=== PATIENT | male | born 1975 | race Caucasian/White ===

== ENCOUNTER 2018-05-05 16:53 | Inpatient (IN) | payer OTHER ==
[2018-05-05 17:05] VITALS: BMI 31.3
--- NOTE | 2018-05-05 18:39 | PDOC ---
Attending Attestation - Physicial Exam PE: 05/05/18 18:45 ADULT EXAM GENERAL: Awake, alert, and fully oriented, in no acute distress HEAD: No signs of trauma EYES: PERRLA, EOMI, sclera anicteric, conjunctiva clear ENT: Auricles normal inspection, hearing grossly normal, nares patent, oropharynx clear without exudates. Moist mucosa NECK: Normal ROM, supple, no lymphadenopathy, JVD, or masses LUNGS: Breath sounds equal, clear to auscultation bilaterally. No wheezes, and no crackles HEART: Regular rate and rhythm, normal S1 and S2, no murmurs, rubs or gallops ABDOMEN: (+) RLQ tenderness. Soft, normoactive bowel sounds. No guarding, no rebound. No masses EXTREMITIES: Normal range of motion, no edema. No clubbing or cyanosis. No cords, erythema, or tenderness NEUROLOGICAL: Cranial nerves II through XII grossly intact. Normal speech, normal gait SKIN: Warm, Dry, normal turgor, no rashes or lesions noted. <Martin Smith - Last Filed: 05/05/18 22:24> - Resident Resident Name: Glory Brizuela - ED Attending Attestation I have performed the following: I have examined & evaluated the patient, The case was reviewed & discussed with the resident, I agree w/resident's findings & plan, Exceptions are as noted - HPI HPI: 05/05/18 18:43 83-year-old male with no past significant history developed abdominal pain today with nausea. Pain has been persistent. Nausea but no vomiting or diarrhea, fever, chills - Medical Decision Making 05/05/18 22:28 CAT scan of abdomen and pelvis with contrast shows enlarged appendicitis with appenicolith with fat stranding. Impression early appendicitis Dr Robertson consulted and agreed to admission <Airam Olsen - Last Filed: 05/05/18 22:30>
[2018-05-05] MEDS ORDERED: morphine CARPU-JECT 2 MG/1 ML DISP.SYRIN IVPUSH ONE ×2 (18:43→22:17)
[2018-05-05] MEDS ORDERED: SODIUM CHLORIDE 1,000 ML IV STA (18:44)
[2018-05-05] MEDS ORDERED: ONDANSETRON 4 MG/2 ML VIAL IVPUSH ONE (18:45)
--- NOTE | 2018-05-05 18:53 | PDOC ---
History of Present Illness - General Chief Complaint: Pain Stated Complaint: FATIGUE/nausea Time Seen by Provider: 05/05/18 18:14 History Source: Patient Exam Limitations: No Limitations - History of Present Illness Initial Comments: 43yo M with no significant PMH complaining of abdominal pain. The pain started this morning, has been constant, and gotten worse over the course of the day. He rates it 7/10 currently, 9/10 at its worst, and describes it as twisting. Certain positions and movement make the pain worse and nothing makes the pain better. Patient endorses nausea which has keep him from eating. Last bowel movement was this morning, a brown formed stool. No history of abdominal surgeries or kidney stones. Denies fever, chills, chest pain, shortness of breath, dysuria, or hematuria. 05/05/18 19:06 Past History - Past Medical History Allergies/Adverse Reactions: Allergies Allergy/AdvReac Type Severity Reaction Status Date / Time No Known Allergies Allergy Verified 05/05/18 17:05 Home Medications: Ambulatory Orders NK [No Known Home Medication] 05/05/18 COPD: No - Suicide/Smoking/Psychosocial Hx Smoking History: Never smoked Have you smoked in the past 12 months: No Information on smoking cessation initiated: No Hx Alcohol Use: No Drug/Substance Use Hx: No Substance Use Type: None Review of Systems - Review of Systems Comments:: Constitutional: +chills, no fever HEENT: no throat pain, no dysphagia Cardiovascular: no chest pain, no palpitations Respiratory: no cough, no shortness of breath Gastrointestinal: +abdominal pain, +nausea, no diarrhea, no constipation Genitourinary: no dysuria, no frequency Musculoskeletal: no myalgia, no arthralgia Skin: no rash, no itching Neurologic: no headache, no dizziness *Physical Exam - Vital Signs Last Vital Signs Temp Pulse Resp BP Pulse Ox 99.1 F 52 L 16 135/71 100 05/05/18 17:03 05/05/18 17:03 05/05/18 17:03 05/05/18 17:03 05/05/18 17:03 - Physical Exam Comments: General: Awake, alert, and fully oriented, in no acute distress Head: no signs of trauma Eyes: PERRL, EOMI, sclera anicteric ENT: moist mucus membranes, Neck: Normal ROM, supple, no lymphadenopathy Lungs: Lungs clear, Normal breath sounds Cardio: Regular rhythm, S1 and S2 present, no murmurs, rubs, or gallops Abdomen: +very tender to palpation focal to RLQ, +Obturator sign, +less tender LLQ and epigastrium; Soft, normal bowel sounds. No guarding, no rebound, no masses Extremities: Normal range of motion, No clubbing or cyanosis SKIN: Warm, Dry, normal turgor, no rashes or lesions noted Neurologic: Cranial nerves II through XII grossly intact. Normal speech ED Treatment Course - LABORATORY CBC & Chemistry Diagram: 05/06/18 06:21 05/06/18 13:48 - RADIOLOGY Radiology Studies Ordered: Category Date Time Status ABDOMEN CT WITH CONTRAST* [CT] Stat CT Scan 05/05/18 18:45 Ordered Medical Decision Making - Medical Decision Making 43yo M with RLQ abdominal pain, +obturator sign. DDX includes appendicitis given anorexia, nausea with RLQ tenderness on abdominal exam. Will obtain CBC with differential to assess for elevated white count and Abdominal CT w/contrast. It is less likely that the patient has diverticulitis given younger age, no fever, no LLQ pain, no change in bowel habits. It is less likely that the patient has an acute coronary syndrome given patient s young age, lack of family history of heart problems, does not have chest pain currently, is hemodynamically stable. EKG ordered. It is less likely that the patient has symptomatic nephrolithiasis given no history of kidney stones, dehydration, or hematuria. It is less likely AAA given no syncope, no chest pain. 05/05/18 18:55 Patient signed out to Dr. Paula 05/05/18 19:19 *DC/Admit/Observation/Transfer Diagnosis at time of Disposition: Appendicitis - Discharge Dispostion Condition at time of disposition: Improved - Referrals - Patient Instructions - Post Discharge Activity
[2018-05-05] MEDS ORDERED: ONDANSETRON 4 MG/2 ML VIAL ONE (18:57)
[2018-05-05] MEDS ORDERED: MORPHINE SULFATE 2 MG/ML VIAL ONE ×2 (18:57→22:28)
[2018-05-05 19:18] LABS: BASO % 0.3 % (0-2.0); EOS % 0.2 % (0-4.5); HEMATOCRIT 38.3 % (35.4-49); HEMOGLOBIN 13.1 GM/dL (11.7-16.9); LYMPH % 8.4 % (8-40); MCH 29.7 pg (25.7-33.7); MCHC 34.3 g/dl (32.0-35.9); MEAN CELL VOLUME 86.5 fl (80-96); MEAN PLT VOLUME 7.1 fl (7.5-11.1); MONO % 4.8 % (3.8-10.2); NEUT % 86.3 % (42.8-82.8); PLATELET COUNT 293 K/MM3 (134-434); RBC 4.42 M/mm3 (4.00-5.60); RDW 13.3 % (11.9-15.9); WHITE BLOOD COUNT 14.7 K/mm3 (4.0-10.0)
[2018-05-05] MEDS ORDERED: PIPERACILLIN/TAZOB 4.5 GM 4.5 GM in DEXTROSE 5%-WATER 100 ML IVPB ONE (19:41)
--- NOTE | 2018-05-05 19:41 | PDOC ---
*Physical Exam - Vital Signs Last Vital Signs Temp Pulse Resp BP Pulse Ox 99.1 F 52 L 16 135/71 100 05/05/18 17:03 05/05/18 17:03 05/05/18 17:03 05/05/18 17:03 05/05/18 17:03 - Physical Exam Comments: 05/05/18 19:37 General: Comfortable, no acute distress HEENT: PERRL, EOMI, MMM, voice normal, normal neck ROM, no LAD Cards: RRR, no murmur appreciated Pulm: Comfortable on room air, clear to auscultation bilaterally Abd: TTP in RLQ, mild epigastric tenderness Ext: Atraumatic. No LE edema. ROM intact. Strength 5/5 and equal bilaterally Vasc: Extremities WWP. Palpable radial and pedal pulses bilaterally Neuro: A&Ox3, CN grossly intact, normal speech, motor/sensory grossly intact and symmetric Psych: Mood appropriate to situation ED Treatment Course - LABORATORY CBC & Chemistry Diagram: 05/05/18 19:05 05/05/18 19:05 - ADDITIONAL ORDERS Additional order review: 05/05/18 19:05 RBC 4.42 MCV 86.5 MCHC 34.3 RDW 13.3 MPV 7.1 L Neutrophils % 86.3 H Lymphocytes % 8.4 Monocytes % 4.8 Eosinophils % 0.2 Basophils % 0.3 - Medications Given in the ED: ED Medications Discontinued Medications Generic Name Dose Route Start Last Admin Trade Name Freq PRN Reason Stop Dose Admin Morphine Sulfate 2 mg 05/05/18 18:43 05/05/18 19:25 Morphine Injection - IVPUSH 05/05/18 18:44 2 mg ONCE ONE Administration Ondansetron HCl 4 mg 05/05/18 18:45 05/05/18 19:25 Zofran Injection IVPUSH 05/05/18 18:46 4 mg ONCE ONE Administration Medical Decision Making - Medical Decision Making 05/05/18 19:38 Sign out received from Dr Brizuela. Petaramado Dormanbryaneliza is an otherwise healthy 43yo man who presented to the ED with worsening RLQ pain since this morning, +obturator sign, labs returned at this point with WBC 14. Lytes, UA, CT abdomen still pending. - Recieved IV morphine about 15 minutes prior to exam, reports pain improved - Will start zosyn for presumed appendicitis. Plan for surgery consult if confirmed on CT. 05/05/18 22:59 - CT completed indicating appendicolith, dilation of appendix, fat stranding - Discussed with Dr Robertson. Will be admitted to hospitalist, plan for surgery in morning - Hospitalist paged - Made NPO after midnight - Will discuss plan with Mr Escobar Discussed with Dr Olsen *DC/Admit/Observation/Transfer Diagnosis at time of Disposition: Appendicitis Qualifiers: Appendicitis type: acute appendicitis Acute appendicitis type: unspecified acute appendicitis type Qualified Code(s): K35.80 - Unspecified acute appendicitis - Discharge Dispostion Decision to Admit order: Yes - Referrals - Patient Instructions - Post Discharge Activity
[2018-05-05 19:57] LABS: ALK PHOS 76 U/L (45-117); ANION GAP 8 (8-16); BILIRUBIN,TOTAL 0.5 mg/dL (0.2-1.0); BLOOD UREA NITROGEN 14 mg/dL (7-18); CHLORIDE 105 mmol/L (98-107); CO2 27 mmol/L (21-32); CREATININE 1.2 mg/dL (0.7-1.3); GLUCOSE,RANDOM 107 mg/dL (74-106); LIPASE 153 U/L (73-393); POTASSIUM 4.1 mmol/L (3.5-5.1); SGOT/AST 25 U/L (15-37); SGPT/ALT 58 U/L (12-78); SODIUM 140 mmol/L (136-145); TOT PROT 7.7 g/dl (6.4-8.2)
[2018-05-05] MEDS ORDERED: PIPERACILLIN/TAZOB 4.5 GM 4.5 GM/100 ML BAG IVPB ONE (20:40)
[2018-05-05 20:55] LABS: URINE APPEARANCE CLEAR; URINE BILIRUBIN NEGATIVE (<2.0 mg/dL); URINE COLOR LTYELLOW; URINE GLUCOSE (UA) NEGATIVE (NEGATIVE); URINE KETONE NEGATIVE (NEGATIVE); URINE LEUK ESTERASE NEGATIVE (NEGATIVE); URINE NITRITE NEGATIVE (NEGATIVE); URINE PROTEIN NEGATIVE (NEGATIVE); URINE UROBILINOGEN NEGATIVE mg/dL (0.2-1.0)
[2018-05-05] MEDS ORDERED: D5-1/2NS+20 MEQ KCL - 20 MEQ/1,000 ML INFUS.BAG IV SCH (23:15)
[2018-05-05 23:42] LABS: INR 1.12 (0.82-1.09); PROTHROMBIN TIME (PATIENT) 12.7 SEC (9.7-13.0)
--- NOTE | 2018-05-06 00:35 | PN ---
Teaching Attending Note Name of Resident: Antonio Hadley ATTENDING PHYSICIAN STATEMENT I saw and evaluated the patient. I reviewed the resident's note and discussed the case with the resident. I agree with the resident's findings and plan as documented. SUBJECTIVE: Patient is a 43 year old man with no significant PMH complaining of RLQ abdominal pain. The pain started this morning, has been constant, and gotten worse over the course of the day. He rates it 7/10 currently, 9/10 at its worst , and describes it as twisting. Certain positions and movement make the pain worse and nothing makes the pain better. Has nausea which has kept him from eating. Last bowel movement was this morning, a brown formed stool. No history of abdominal surgeries or kidney stones. Denies fever, chills, chest pain, shortness of breath, dysuria, or hematuria. OBJECTIVE: Alert and in no acute distress Vital Signs Period Temp Pulse Resp BP Sys/Anaya Pulse Ox Last 24 Hr 97.9 F-99.1 F 52-71 16-16 117-135/64-71 98-100 HEENT: No Jaundice, eye redness or discharge, PERRLA, EOMI. Normocephalic, atraumatic. External ears are normal and hearing is grossly intact. No nasal discharge. Neck: Supple, nontender. No palpable adenopathy or thyromegaly. No JVD Chest: Good effort. Clear to auscultation and percussion. Heart: Bradycradia. No S3, rub or murmur Abdomen: Not distended, soft, RLQ tenderness and no HSM. No rebound or guarding. Normoactive bowel sounds. Ext: Peripheral pulses intact. No leg edema. Skin: Warm and dry. No petechiae, rash or ecchymosis. Neuro: Alert. Oriented x3. CN 2-12 grossly intact. Sensation grossly intact in all four extremities and DTR are symmetric. Current Medications Generic Name Dose Route Start Last Admin Trade Name Freq PRN Reason Stop Dose Admin Potassium Chloride/Dextrose/Sod Cl 20 meq in 1,000 mls @ 83 mls/hr 05/05/18 23 :15 05/05/18 23:18 D5-1/2ns+20 Meq Kcl - IV 83 mls/hr ASDIR GISSEL Administration Home Medications Medication Instructions Recorded NK [No Known Home Medication] 05/05/18 Abnormal Lab Results 05/05/18 05/05/18 05/05/18 19:05 19:05 20:45 WBC 14.7 H MPV 7.1 L Neutrophils % 86.3 H Random Glucose 107 H Urine Blood 1+ H ASSESSMENT AND PLAN: 1. Appendicitis - Confirmed by CT scan. Will treat with IV Cefazolin 2 gm q 8 hours and Flagyl 500 mg IV q 8 hours, IV fluids and keep him NPO. Seen by surgery and scheduled for appendectomy in am. Check HbA1c and repeat EKG. Has unexplained bradycardia and t wave inversion in V1 and 2. No chest pain or evidence of ACS. Repeat EKG is pending. 2. DVT prophylaxis - Heparin 5000u sq tid. 3. Advance directives - Full code
--- NOTE | 2018-05-06 01:01 | HP ---
CHIEF COMPLAINT: Abdominal pain PCP: HISTORY OF PRESENT ILLNESS: 43 y/o male with no significant PMH presents with abdominal pain. States he woke up with the pain this morning. Described as diffuse, periumbilical and "twisting pain" in nature. Pain progressed in intensity and localized towards RLQ as day progressed. Admits nausea, subjective chills, no vomiting. He drank herbal tea with baking soda which was mildly palliative. Denies trying any OTC medications for the pain. Denies past occurrence of this pain. Last bowel movement this morning, semi-solid, without melena, hematochezia, or tiffanie blood. Last urinated in ED, denies dysuria, hematuria, urgency, frequency. Denies fevers, shortness of breath, chest pain, palpitations, vomiting, diarrhea. ER course was notable for: (1) EKG, CT abdomen/ pelvis with IV contrast, (2) IV NS, D5 1/2NS + 20 KCl, Morphine, Zofran, Zosyn (3) Recent Travel: PAST MEDICAL HISTORY: Denies PAST SURGICAL HISTORY: Denies Social History: Smoking: denies Alcohol: Admits 5-6 beers on weekends Drugs: Denies Family History: Allergies No Known Allergies Allergy (Verified 05/05/18 17:05) HOME MEDICATIONS: Home Medications Medication Instructions Recorded NK [No Known Home Medication] 05/05/18 REVIEW OF SYSTEMS As per [facility] PHYSICAL EXAMINATION Vital Signs - 24 hr 05/05/18 05/06/18 17:03 00:21 Temperature 99.1 F 97.9 F Pulse Rate 52 L Pulse Rate [ 71 Right Radial] Respiratory 16 16 Rate Blood Pressure 135/71 Blood Pressure 117/64 [Left Arm] O2 Sat by Pulse 100 98 Oximetry (%) GENERAL: Awake, alert, and fully oriented, in no acute distress. HEAD: Normal with no signs of trauma. EYES: Pupils equal, round and reactive to light, extraocular movements intact, sclera anicteric. EARS, NOSE, THROAT: Oropharynx clear without exudates. Moist mucous membranes. NECK: Normal range of motion, supple without lymphadenopathy. LUNGS: Breath sounds equal, clear to auscultation bilaterally. No wheezes, no crackles. HEART: Regular rate and rhythm, normal S1 and S2 without murmur, rub or gallop. ABDOMEN: Soft, hypoactive bowel sounds. RLQ tender to palpation. +Rovsing sign. +McBurney's point. No rebund. EXTREMITIES: 2+ pulses, warm, well-perfused. No peripheral edema. NEUROLOGICAL: Cranial nerves II-XII intact. Normal speech. PSYCHIATRIC: Cooperative. Appropriate mood and affect. SKIN: Warm, dry, normal turgor,normal capillary refill. Laboratory Results - last 24 hr 05/05/18 05/05/18 05/05/18 19:05 19:05 20:45 WBC 14.7 H RBC 4.42 Hgb 13.1 Hct 38.3 MCV 86.5 MCH 29.7 MCHC 34.3 RDW 13.3 Plt Count 293 MPV 7.1 L Absolute Neuts (auto) 12.7 Neutrophils % 86.3 H Lymphocytes % 8.4 Monocytes % 4.8 Eosinophils % 0.2 Basophils % 0.3 Nucleated RBC % 0 PT with INR INR Sodium 140 Potassium 4.1 Chloride 105 Carbon Dioxide 27 Anion Gap 8 BUN 14 Creatinine 1.2 Creat Clearance w eGFR > 60 Random Glucose 107 H Calcium 9.0 Total Bilirubin 0.5 AST 25 ALT 58 Alkaline Phosphatase 76 Total Protein 7.7 Albumin 4.0 Lipase 153 Urine Color Ltyellow Urine Appearance Clear Urine pH 6.0 Ur Specific [place] 1.014 Urine Protein Negative Urine Glucose (UA) Negative Urine Ketones Negative Urine Blood 1+ H Urine Nitrite Negative Urine Bilirubin Negative Urine Urobilinogen Negative Ur Leukocyte Esterase Negative Urine WBC (Auto) None Urine RBC (Auto) 1 05/05/18 23:31 WBC RBC Hgb Hct MCV MCH MCHC RDW Plt Count MPV Absolute Neuts (auto) Neutrophils % Lymphocytes % Monocytes % Eosinophils % Basophils % Nucleated RBC % PT with INR 12.70 INR 1.12 Sodium Potassium Chloride Carbon Dioxide Anion Gap BUN Creatinine Creat Clearance w eGFR Random Glucose Calcium Total Bilirubin AST ALT Alkaline Phosphatase Total Protein Albumin Lipase Urine Color Urine Appearance Urine pH Ur Specific [place] Urine Protein Urine Glucose (UA) Urine Ketones Urine Blood Urine Nitrite Urine Bilirubin Urine Urobilinogen Ur Leukocyte Esterase Urine WBC (Auto) Urine RBC (Auto) ASSESSMENT/PLAN: 43 y/o male with no significant PMH presents with complaint of abdominal pain. Acute appendicitis -CT showed appendicolith within proximal third of appendix, mild dilation distally, questionable fat stranding. -Diffuse levi-umbilical pain progressing to localized RLQ pain, + McBurney's point, + Rovsing sign -D5 1/2NS +20KCl -Begin Cefazolin and Flagyl -For surgery w/ Dr. Robertson -Pt/INR, type and screen ordered -NPO FEN -IV D5 1/2 NS + 20KCL -No electrolyte abnormalities at this time -NPO Prophylaxis -Heparin 5000u subq tid Advance directives -Full code Disposition: Admit to medical-surgical floor Case discussed with substation operator conversion attending. Visit type - Emergency Visit Emergency Visit: Yes ED Registration Date: 05/05/18 Care time: The patient presented to the Emergency Department on the above date and was hospitalized for further evaluation of their emergent condition. - New Patient This patient is new to me today: Yes Date on this admission: 05/06/18 - Critical Care Critical Care patient: No Hospitalist Screening - Colonoscopy Questionnaire Colonoscopy Questionnaire: Colonoscopy Questionnaire - Patient: 50 - 75 years old and never had a screening colonoscopy: Unknown History of colon or rectal polyps, or CA: Unknown History of IBD, Crohn's disease or UC: Unknown History of abdominal radiation therapy as a child: Unknown - Relative: 1 with colon or rectal CA, or polyps at age 60 or younger: Unknown Colon or rectal CA diagnosed at age 45 or younger: Unknown Multiple relatives with colon or rectal CA: Unknown - Outcome: Screening Result: Negative Screen
[2018-05-06] MEDS ORDERED: HEPARIN NA (PORCINE) 5,000 UNITS/ML 1ML VIAL SQ SCH (06:00)
[2018-05-06 06:44] LABS: BASO % 0.4 % (0-2.0); EOS % 0.3 % (0-4.5); HEMATOCRIT 35.9 % (35.4-49); HEMOGLOBIN 12.5 GM/dL (11.7-16.9); LYMPH % 16.9 % (8-40); MCH 30.2 pg (25.7-33.7); MCHC 34.7 g/dl (32.0-35.9); MEAN PLT VOLUME 7.1 fl (7.5-11.1); MONO % 6.4 % (3.8-10.2); PLATELET COUNT 238 K/MM3 (134-434); RBC 4.13 M/mm3 (4.00-5.60); RDW 13.3 % (11.9-15.9); WHITE BLOOD COUNT 12.7 K/mm3 (4.0-10.0)
[2018-05-06] MEDS ORDERED: ceFAZolin SODIUM 1 GM VIAL ONE (06:46)
[2018-05-06 07:05] LABS: ALBUMIN 3.6 g/dl (3.4-5.0); ALK PHOS 65 U/L (45-117); ANION GAP 6 (8-16); BILIRUBIN,TOTAL 0.7 mg/dL (0.2-1.0); BLOOD UREA NITROGEN 11 mg/dL (7-18); CALCIUM 8.5 mg/dL (8.5-10.1); CHLORIDE 103 mmol/L (98-107); CO2 28 mmol/L (21-32); CREATININE 1.1 mg/dL (0.7-1.3); GLUCOSE,RANDOM 111 mg/dL (74-106); POTASSIUM 3.6 mmol/L (3.5-5.1); SGOT/AST 21 U/L (15-37); SGPT/ALT 48 U/L (12-78); SODIUM 137 mmol/L (136-145); TOT PROT 6.9 g/dl (6.4-8.2)
[2018-05-06] MEDS: CEFAZOLIN 2 GM/D5W 2 GM/50 ML ML IVPB SCH ×2 (07:06→11:06)
[2018-05-06] MEDS ORDERED: BUPIVACAINE HCL/PF 0.5% (5MG/ML) 10 ML VIAL ONE (08:00)
--- NOTE | 2018-05-06 08:06 | CONSULT ---
- Consultation REQUESTING PROVIDER: Vivek Robertson CONSULT REQUEST: We have been asked to surgically evaluate this patient for RLQ pain PCP: Eze Mckee HPI: Called to nanette 43yo male without an PMHx, comes in to [facility] Ed w/ c/o abd pain. Pain awoke him from his sleep. States it initially started around his belly-button and has since mirgrated to his RLQ. Associated nausea but no vomiting. His last BM was early this morning (semi-solid, non-bloody). Last meal eaten was dinner. Never took any OTC to alleviate pain and or subjective fever. + Anorexia. Received Cefazolin 2gm in ER. CT Scan in ED: enlarged appendicitis (appendicolith) and fat stranding. Denies CP, palpitations or SOB. Denies abdominal distension, diarrhea, constipation, melena, hematochezia. Denies dysuria, hematuria, urgency, frequency. PMHx: Denies. PSHx: Denies. Home Meds: Denies. Allergies: NKDA ROS CONSTITUTIONAL: Absent: generalized weakness, malaise, weight change CARDIOVASCULAR: Absent: syncope, irregular heart rate, lightheadedness, peripheral edema RESPIRATORY: Absent: cough, dyspnea with exertion, wheezing, stridor, hemoptysis GASTROINTESTINAL:Absent: See hpi GENITOURINARY: Absent: See hpi MUSCULOSKELETAL: Absent: myalgia, arthralgia, joint swelling, back pain, neck pain SKIN: Absent: rash, itching, pallor HEMATOLOGIC/IMMUNOLOGIC: Absent: easy bleeding, easy bruising, lymphadenopathy NEUROLOGIC: Absent: headache, dizziness, unsteady gait, seizure, mental status changes, bladder or bowel incontinence PSYCHIATRIC: Absent: anxiety, depression, suicidal or homicidal ideation, hallucinations. PE: GENERAL: Awake, alert, and fully oriented, in no acute distress. HEAD: NC. AT. EYES: PERRL, sclera anicteric, conjunctiva clear. NECK: Normal ROM, supple without lymphadenopathy, JVD, or masses. LUNGS: Clear to auscultation bilat anteriorly. No wheezes, and no crackles. No accessory muscle use. HEART: Regular rate and rhythm. No murmurs ABDOMEN: Voluntary guarding RLQ. + McBurney's, + Ileopsoas MUSCULOSKELETAL: No CVA tenderness. UE: 2+ pulses, warm, well-perfused. No cyanosis. Cap refill <2 seconds. No peripheral edema. LE: 2+ pulses, warm, well-perfused. No calf tenderness. No peripheral edema. NEUROLOGICAL: Normal speech, gait not observed. PSYCH: Cooperative. Good eye contact. Appropriate mood and affect. SKIN: Warm, dry, normal turgor, no rashes or lesions noted Last Vital Signs Temp Pulse Resp BP Pulse Ox 98.8 F 72 20 93/68 98 05/06/18 07:41 05/06/18 07:41 05/06/18 07:41 05/06/18 07:41 05/06/18 07:41 CBC, BMP 05/06/18 06:21 05/06/18 06:21 Blood Type Blood Type O POSITIVE 05/06/18 04:25 Hepatic Panel Total Bilirubin 0.7 mg/dL (0.2-1.0) 05/06/18 06:21 AST 21 U/L (15-37) 05/06/18 06:21 ALT 48 U/L (12-78) 05/06/18 06:21 Alkaline Phosphatase 65 U/L (45-117) D 05/06/18 06:21 Albumin 3.6 g/dl (3.4-5.0) 05/06/18 06:21 INR, PTT INR 1.12 (0.82-1.09) 05/05/18 23:31 Problem List - Problems (1) Appendicitis Assessment/Plan: 43 yo male admitted with acute appendicitis identified on CT scan. Leukocytosis. 1. Going to OR today for lap appendectomy, possible open. 2. NPO / IVF 3. GI ppx 4. DVT ppx 5. Tylenol 650mg PO for fever > 100.3F 6. Pain management prn Above discussed with Dr. Robertson and agrees. Code(s): K37 - UNSPECIFIED APPENDICITIS Qualifiers: Appendicitis type: acute appendicitis Acute appendicitis type: unspecified acute appendicitis type Qualified Code(s): K35.80 - Unspecified acute appendicitis Visit type - Case Type Case Type: ED Admission - Emergency Emergency Visit: Yes ED Registration Date: 05/05/18 Care time: The patient presented to the Emergency Department on the above date and was hospitalized for further evaluation of their emergent condition. - New patient This patient is new to me today: Yes Date on this admission: 05/06/18
--- NOTE | 2018-05-06 08:17 | PN ---
Physical Exam: SUBJECTIVE: Patient seen and examined at bedside. No acute complaints. OBJECTIVE: Vital Signs Period Temp Pulse Resp BP Sys/Naaya Pulse Ox Last 24 Hr 97.9 F-99.1 F 52-72 16-20 93-135/64-71 98-100 GENERAL: NAD. AAOx3. HEENT: EOMI. Moist mucus membranes. NECK: Supple, No JVD or LAD. LUNGS: CTA B/L. No wheezes/rhonchi/rales. HEART: RRR. Normal S1, S2. No murmurs/rub/ or gallop. ABDOMEN: wound dressings c/d/i. Soft, nondistended. No masses noted. EXTREMITIES: 2+ pulses, warm, well-perfused, no edema. NEUROLOGICAL: Cranial nerves II through XII grossly intact. Normal speech, gait not observed. PSYCH: Normal mood, normal affect. SKIN: Warm, dry, normal turgor, no rashes or lesions noted Laboratory Results - last 24 hr 05/05/18 05/05/18 05/05/18 19:05 19:05 20:45 WBC 14.7 H RBC 4.42 Hgb 13.1 Hct 38.3 MCV 86.5 MCH 29.7 MCHC 34.3 RDW 13.3 Plt Count 293 MPV 7.1 L Absolute Neuts (auto) 12.7 Neutrophils % 86.3 H Lymphocytes % 8.4 Monocytes % 4.8 Eosinophils % 0.2 Basophils % 0.3 Nucleated RBC % 0 PT with INR INR Sodium 140 Potassium 4.1 Chloride 105 Carbon Dioxide 27 Anion Gap 8 BUN 14 Creatinine 1.2 Creat Clearance w eGFR > 60 Random Glucose 107 H Calcium 9.0 Total Bilirubin 0.5 AST 25 ALT 58 Alkaline Phosphatase 76 Total Protein 7.7 Albumin 4.0 Lipase 153 Urine Color Ltyellow Urine Appearance Clear Urine pH 6.0 Ur Specific [place] 1.014 Urine Protein Negative Urine Glucose (UA) Negative Urine Ketones Negative Urine Blood 1+ H Urine Nitrite Negative Urine Bilirubin Negative Urine Urobilinogen Negative Ur Leukocyte Esterase Negative Urine WBC (Auto) None Urine RBC (Auto) 1 Blood Type Antibody Screen 05/05/18 05/06/18 05/06/18 23:31 00:05 04:25 WBC RBC Hgb Hct MCV MCH MCHC RDW Plt Count MPV Absolute Neuts (auto) Neutrophils % Lymphocytes % Monocytes % Eosinophils % Basophils % Nucleated RBC % PT with INR 12.70 INR 1.12 Sodium Potassium Chloride Carbon Dioxide Anion Gap BUN Creatinine Creat Clearance w eGFR Random Glucose Calcium Total Bilirubin AST ALT Alkaline Phosphatase Total Protein Albumin Lipase Urine Color Urine Appearance Urine pH Ur Specific [place] Urine Protein Urine Glucose (UA) Urine Ketones Urine Blood Urine Nitrite Urine Bilirubin Urine Urobilinogen Ur Leukocyte Esterase Urine WBC (Auto) Urine RBC (Auto) Blood Type O POSITIVE O POSITIVE Antibody Screen Negative 05/06/18 05/06/18 06:21 06:21 WBC 12.7 H RBC 4.13 Hgb 12.5 Hct 35.9 MCV 87.0 MCH 30.2 MCHC 34.7 RDW 13.3 Plt Count 238 MPV 7.1 L Absolute Neuts (auto) 9.7 Neutrophils % 76.0 Lymphocytes % 16.9 D Monocytes % 6.4 Eosinophils % 0.3 Basophils % 0.4 Nucleated RBC % 0 PT with INR INR Sodium 137 Potassium 3.6 Chloride 103 Carbon Dioxide 28 Anion Gap 6 L BUN 11 Creatinine 1.1 Creat Clearance w eGFR > 60 Random Glucose 111 H Calcium 8.5 Total Bilirubin 0.7 AST 21 ALT 48 Alkaline Phosphatase 65 D Total Protein 6.9 Albumin 3.6 Lipase Urine Color Urine Appearance Urine pH Ur Specific [place] Urine Protein Urine Glucose (UA) Urine Ketones Urine Blood Urine Nitrite Urine Bilirubin Urine Urobilinogen Ur Leukocyte Esterase Urine WBC (Auto) Urine RBC (Auto) Blood Type Antibody Screen Active Medications Generic Name Dose Route Start Last Admin Trade Name Freq PRN Reason Stop Dose Admin Heparin Sodium (Porcine) 5,000 unit 05/06/18 06:00 Heparin - SQ TID GISSEL Potassium Chloride/Dextrose/Sod Cl 20 meq in 1,000 mls @ 83 mls/hr 05/05/18 23 :15 05/05/18 23:18 D5-1/2ns+20 Meq Kcl - IV 83 mls/hr ASDIR GISSEL Administration Cefazolin Sodium/Dextrose 2 gm in 50 mls @ 100 mls/hr 05/06/18 05:30 07:06 Ancef 2 Gm Premixed Ivpb - IVPB 100 mls/hr Q8H-IV GISSEL Administration Metronidazole 500 mg in 100 mls @ 100 mls/hr 05/06/18 05:30 05/06/18 06:33 Flagyl 500mg Premixed Ivpb - IVPB 100 mls/hr Q8H-IV GISSEL Administration CT Abd/Pel: appendicolith within proximal third of appendix, mild dilation distally, questionable fat stranding. Consults: Surg-Dr. Robertson ASSESSMENT/PLAN: 43 y/o male with no significant PMH presents with complaint of perumbilical abdominal pain, s/p appendectomy today. #Acute appendicitis; s/p lap appendectomy with findings of acute suppurative appendicitis; minimal abd tenderness post-op. deb PO intake. -cont Tylenol 325 mg PO Q4h for pain -cont Oxycodone 5 mg PO Q4h for pain #FEN -LR 1000mg @ 125cc/hr -No electrolyte abnormalities at this time -CLD #DVT Ppx -Lovenox 40 mg SQ QD dispo full code Visit type - Emergency Visit Emergency Visit: Yes ED Registration Date: 05/05/18 Care time: The patient presented to the Emergency Department on the above date and was hospitalized for further evaluation of their emergent condition. - New Patient This patient is new to me today: Yes Date on this admission: 05/06/18 - Critical Care Critical Care patient: No
[2018-05-06] MEDS ORDERED: PROPOFOL 20 ML ONE ×2 (10:14)
[2018-05-06] MEDS ORDERED: LIDOCAINE HCL/PF 2% SDV 5ML VIAL ONE (10:14)
[2018-05-06] MEDS ORDERED: ROCURONIUM BROMIDE 50 MG/5 ML VIAL ONE (10:15)
[2018-05-06] MEDS ORDERED: MIDAZOLAM HCL 2 MG/2 ML SINGLE DOSE VIAL ONE (10:15)
--- NOTE | 2018-05-06 10:28 | PN ---
Progress Note (short form) - Note Progress Note: Attending Surgeon Patient seen and evaluated; chart reviewed; concur w/a/p as outlined by CHRIS Donohue ; informed consent obtained; r/b/t/a's d/w the patient. Vivek Robertson MD FACS
[2018-05-06] MEDS ORDERED: NEOSTIGMINE METHYLSULFATE 0.5 MG/ML - 10 ML MDV ONE (10:58)
[2018-05-06] MEDS ORDERED: GLYCOPYRROLATE 0.2 MG/1 ML VIAL ONE (10:58)
[2018-05-06] MEDS ORDERED: DEXAMETHASONE SOD PHOSPHATE 4 MG/1 ML VIAL ONE (11:02)
[2018-05-06] MEDS ORDERED: BUPIVACAINE HCL/PF 0.5% (5MG/ML) 10 ML VIAL IJ ONE ×2 (11:18)
--- NOTE | 2018-05-06 11:25 | EKG ---
Test Reason : Blood Pressure : / mmHG Vent. Rate : 064 BPM Atrial Rate : 064 BPM P-R Int : 166 ms QRS Dur : 108 ms QT Int : 404 ms P-R-T Axes : 031 067 051 degrees QTc Int : 416 ms NORMAL SINUS RHYTHM NORMAL ECG WHEN COMPARED WITH ECG OF 05-MAY-2018 17:11, NO SIGNIFICANT CHANGE WAS FOUND Confirmed by FREYA GONZALEZ MD ([id number]) on 05/06/2018 11:25:22 AM Referred By: Confirmed By:FREYA GONZALEZ MD
--- NOTE | 2018-05-06 11:31 | EKG ---
Test Reason : Blood Pressure : / mmHG Vent. Rate : 054 BPM Atrial Rate : 054 BPM P-R Int : 152 ms QRS Dur : 116 ms QT Int : 412 ms P-R-T Axes : 020 066 062 degrees QTc Int : 390 ms SINUS BRADYCARDIA OTHERWISE NORMAL ECG NO PREVIOUS ECGS AVAILABLE Confirmed by CARLOS KEEN, FREYA ([id number]) on 05/06/2018 11:31:16 AM Referred By: PACQUINA Confirmed By:FREYA GONZALEZ MD
--- NOTE | 2018-05-06 11:35 | OP ---
Operative Note - Note: Operative Date: 05/06/18 Pre-Operative Diagnosis: acute appendicitis Operation: lap appendectomy Findings: acute suppurative appendicitis Post-Operative Diagnosis: Same as Pre-op Surgeon: Vivek Robertson Post Commander: Toy Donohue Anesthesiologist/PAINTER SHIPYARD: Tammie Easton Anesthesia: General Specimens Removed: appendix Estimated Blood Loss (mls): 15 Drains & Tubes with Location: none
[2018-05-06] MEDS ORDERED: ACETAMINOPHEN 1000 MG/100 ML VIAL (NON FORMULARY) IVPB PRN (11:39)
--- NOTE | 2018-05-06 11:42 | SURG ---
Surgery Wire Stitcher Note Wire Stitcher: Toy Donohue PA-C Date of Service: 05/06/18 Diagnosis: Acute appendicitis Procedure: Laprascopic appendectomy I was present for the entirety of the operative procedure. For further detail, please refer to operative report. Visit type - Case Type Case Type: ED Admission - Emergency Emergency Visit: Yes ED Registration Date: 05/05/18 Care time: The patient presented to the Emergency Department on the above date and was hospitalized for further evaluation of their emergent condition.
[2018-05-06] MEDS ORDERED: LACTATED RINGERS SOLUTION 1,000 ML IV SCH (11:45)
[2018-05-06] MEDS ORDERED: ACETAMINOPHEN 325 MG TABLET (FP) PO PRN (11:48)
[2018-05-06] MEDS ORDERED: ACETAMINOPHEN INJECTION 100 ML IVPB ONE (12:51)
[2018-05-06] MEDS: D5-1/2NS+20 MEQ KCL - 20 MEQ/1,000 ML INFUS.BAG IV SCH (13:00)
[2018-05-06] MEDS: oxyCODONE HCL 5 MG TABLET PO PRN (13:30)
[2018-05-06 14:24] LABS: ANION GAP 5 (8-16); BLOOD UREA NITROGEN 12 mg/dL (7-18); CALCIUM 8.4 mg/dL (8.5-10.1); CHLORIDE 104 mmol/L (98-107); CO2 29 mmol/L (21-32); CREATININE 1.2 mg/dL (0.7-1.3); GLUCOSE,RANDOM 153 mg/dL (74-106); SODIUM 138 mmol/L (136-145)
--- NOTE | 2018-05-06 19:02 | PN ---
Teaching Attending Note Name of Resident: Jade Coombs ATTENDING PHYSICIAN STATEMENT I saw and evaluated the patient. I reviewed the resident's note and discussed the case with the resident. I agree with the resident's findings and plan as documented. SUBJECTIVE: Patient is comfortable with no fever or chills. OBJECTIVE: Vital Signs Temperature 97.4 F L 05/06/18 17:49 Pulse Rate 63 05/06/18 17:49 Respiratory Rate 20 05/06/18 17:49 Blood Pressure 112/55 05/06/18 17:49 O2 Sat by Pulse Oximetry (%) 99 05/06/18 13:15 CBCD WBC 12.7 K/mm3 (4.0-10.0) H 05/06/18 06:21 RBC 4.13 M/mm3 (4.00-5.60) 05/06/18 06:21 Hgb 12.5 GM/dL (11.7-16.9) 05/06/18 06:21 Hct 35.9 % (35.4-49) 05/06/18 06:21 MCV 87.0 fl (80-96) 05/06/18 06:21 MCHC 34.7 g/dl (32.0-35.9) 05/06/18 06:21 RDW 13.3 % (11.9-15.9) 05/06/18 06:21 Plt Count 238 K/MM3 (134-434) 05/06/18 06:21 MPV 7.1 fl (7.5-11.1) L 05/06/18 06:21 CMP Sodium 138 mmol/L (136-145) 05/06/18 13:48 Potassium 4.0 mmol/L (3.5-5.1) 05/06/18 13:48 Chloride 104 mmol/L (98-107) 05/06/18 13:48 Carbon Dioxide 29 mmol/L (21-32) 05/06/18 13:48 Anion Gap 5 (8-16) L 05/06/18 13:48 BUN 12 mg/dL (7-18) 05/06/18 13:48 Creatinine 1.2 mg/dL (0.7-1.3) 05/06/18 13:48 Creat Clearance w eGFR > 60 (>60) 05/06/18 13:48 Random Glucose 153 mg/dL (74-106) H D 05/06/18 13:48 Calcium 8.4 mg/dL (8.5-10.1) L 05/06/18 13:48 Total Bilirubin 0.7 mg/dL (0.2-1.0) 05/06/18 06:21 AST 21 U/L (15-37) 05/06/18 06:21 ALT 48 U/L (12-78) 05/06/18 06:21 Alkaline Phosphatase 65 U/L (45-117) D 05/06/18 06:21 Total Protein 6.9 g/dl (6.4-8.2) 05/06/18 06:21 Albumin 3.6 g/dl (3.4-5.0) 05/06/18 06:21 Current Medications Generic Name Dose Route Start Last Admin Trade Name Freq PRN Reason Stop Dose Admin Acetaminophen 1,000 mg 05/06/18 11:39 05/06/18 12:50 Ofirmev Injection - IVPB 1,000 mg Q6H PRN Administration FEVER Acetaminophen 325 mg 05/06/18 11:48 05/06/18 13:29 Tylenol - PO 05/09/18 11:47 325 mg Q4H PRN Administration PAIN 1-5 Enoxaparin Sodium 40 mg 05/07/18 10:00 Lovenox - SQ DAILY GISSEL Fentanyl 50 mcg 05/06/18 11:39 05/06/18 12:15 Sublimaze Injection - IVPUSH 50 mcg [id number] PRN Administration PAIN-PACU ORDER X 4 DOSES ONLY Lactated Ringer's 1,000 mls @ 125 mls/hr 05/06/18 11:45 05/06/18 14:59 Lactated Ringers Solution IV Not Given ASDIR GISSEL Potassium Chloride/Dextrose/Sod Cl 20 meq in 1,000 mls @ 83 mls/hr 05/06/18 11 :45 05/06/18 13:00 D5-1/2ns+20 Meq Kcl - IV 0 mls ASDIR GISSEL Administration Oxycodone HCl 5 mg 05/06/18 11:48 05/06/18 13:30 Roxicodone - PO 5 mg Q4H PRN Administration PAIN 1-5 Home Medications Medication Instructions Recorded NK [No Known Home Medication] 05/05/18 PE: per resident's note CT Abd/Pel: appendicolith within proximal third of appendix, mild dilation distally, questionable fat stranding. ASSESSMENT/PLAN: 43 y/o male with no significant PMH presents with complaint of perumbilical abdominal pain, s/p appendectomy today. #POD #0 Acute appendicitis; s/p lap appendectomy with findings of acute suppurative appendicitis; On pain meds, IVF,Monitor Creatinine, given a dose of IV antibiotic #DVT Ppx :Lovenox 40 mg SQ
[2018-05-07] MEDS: D5-1/2NS+20 MEQ KCL - 20 MEQ/1,000 ML INFUS.BAG IV SCH (00:15)
[2018-05-07] MEDS: oxyCODONE HCL 5 MG TABLET PO PRN ×2 (00:36→09:04)
[2018-05-07 07:13] LABS: BASO % 0.4 % (0-2.0); EOS % 0.2 % (0-4.5); HEMATOCRIT 33.3 % (35.4-49); HEMOGLOBIN 11.7 GM/dL (11.7-16.9); LYMPH % 20.5 % (8-40); MCH 30.6 pg (25.7-33.7); MCHC 34.9 g/dl (32.0-35.9); MEAN CELL VOLUME 87.5 fl (80-96); MEAN PLT VOLUME 7.3 fl (7.5-11.1); MONO % 5.3 % (3.8-10.2); NEUT % 73.6 % (42.8-82.8); PLATELET COUNT 242 K/MM3 (134-434); RBC 3.81 M/mm3 (4.00-5.60); RDW 13.1 % (11.9-15.9); WHITE BLOOD COUNT 11.3 K/mm3 (4.0-10.0)
[2018-05-07 07:35] LABS: ALBUMIN 3.5 g/dl (3.4-5.0); BILIRUBIN,TOTAL 0.5 mg/dL (0.2-1.0); CALCIUM 8.5 mg/dL (8.5-10.1); CHLORIDE 107 mmol/L (98-107); CREATININE 1.1 mg/dL (0.7-1.3); POTASSIUM 3.9 mmol/L (3.5-5.1); SGPT/ALT 41 U/L (12-78); SODIUM 142 mmol/L (136-145); TOT PROT 6.8 g/dl (6.4-8.2)
[2018-05-07 07:38] LABS: ALK PHOS 59 U/L (45-117); ANION GAP 8 (8-16); BLOOD UREA NITROGEN 9 mg/dL (7-18); CO2 27 mmol/L (21-32); GLUCOSE,RANDOM 104 mg/dL (74-106); SGOT/AST 19 U/L (15-37)
--- NOTE | 2018-05-07 07:42 | PN ---
Progress Note (short form) - Note Progress Note: POD #1 Alert. Doing well. C/o incisional tenderness. Adequate pain control via PRN meds. He's using incentive spirometer as directed. Voiding spontaneously. Tolerating clears. Denies n/v/f/c, CP or SOB. Last Vital Signs Temp Pulse Resp BP Pulse Ox 97.9 F 53 L 20 117/57 99 05/07/18 06:00 05/07/18 06:00 05/07/18 06:00 05/07/18 06:00 05/06/18 21:00 CBC 05/07/18 06:30 Gen: alert. nad ABD: all surgical ports c/d/i. No hematoma LE: SCDs bilat. Soft. NT. Problem List - Problems (1) Appendicitis Assessment/Plan: POD #1 s/p lap appy. Regular diet Cleared for discharge from a surgery. f/u with Dr. Robertson in his office in [address] behalf of [address] Robertson, thank you for the opportunity to participate in your patient's care. Code(s): K37 - UNSPECIFIED APPENDICITIS Qualifiers: Appendicitis type: acute appendicitis Acute appendicitis type: unspecified acute appendicitis type Qualified Code(s): K35.80 - Unspecified acute appendicitis
--- NOTE | 2018-05-07 08:42 | DS ---
Physical Exam: SUBJECTIVE: Patient seen and examined at bedside. No acute complaints overnight. OBJECTIVE: Vital Signs Period Temp Pulse Resp BP Sys/Anaya Pulse Ox Last 24 Hr 97.4 F-98.8 F 50-68 14-20 98-130/47-68 96-100 PHYSICAL EXAM GENERAL: NAD. AAOx3. HEENT: EOMI. Moist mucus membranes. NECK: Supple, No JVD or LAD. LUNGS: CTA B/L. No wheezes/rhonchi/rales. HEART: RRR. Normal S1, S2. No murmurs/rub/ or gallop. ABDOMEN: wound dressings c/d/i. Soft, nondistended. No masses noted. EXTREMITIES: 2+ pulses, warm, well-perfused, no edema. NEUROLOGICAL: Cranial nerves II through XII grossly intact. Normal speech, gait not observed. PSYCH: Normal mood, normal affect. SKIN: Warm, dry, normal turgor, no rashes or lesions noted LABS Laboratory Results - last 24 hr 05/06/18 05/06/18 05/07/18 06:21 13:48 06:30 WBC 11.3 H RBC 3.81 L Hgb 11.7 Hct 33.3 L MCV 87.5 MCH 30.6 MCHC 34.9 RDW 13.1 Plt Count 242 MPV 7.3 L Absolute Neuts (auto) 8.3 Neutrophils % 73.6 Lymphocytes % 20.5 D Monocytes % 5.3 Eosinophils % 0.2 Basophils % 0.4 Nucleated RBC % 0 Sodium 138 Potassium 4.0 Chloride 104 Carbon Dioxide 29 Anion Gap 5 L BUN 12 Creatinine 1.2 Creat Clearance w eGFR > 60 Random Glucose 153 H D Hemoglobin A1c % 5.8 Calcium 8.4 L Total Bilirubin AST ALT Alkaline Phosphatase Total Protein Albumin 05/07/18 06:30 WBC RBC Hgb Hct MCV MCH MCHC RDW Plt Count MPV Absolute Neuts (auto) Neutrophils % Lymphocytes % Monocytes % Eosinophils % Basophils % Nucleated RBC % Sodium 142 Potassium 3.9 Chloride 107 Carbon Dioxide 27 Anion Gap 8 BUN 9 Creatinine 1.1 Creat Clearance w eGFR > 60 Random Glucose 104 D Hemoglobin A1c % Calcium 8.5 Total Bilirubin 0.5 AST 19 ALT 41 Alkaline Phosphatase 59 Total Protein 6.8 Albumin 3.5 HOSPITAL COURSE: 43M w/ no significant pmhx presented to the ED with periumbilical pain that radiated to the RLQ. Upon initial examination, pt was positive for Rovsing sign , McBurney's point, and psoas sign. In the ED, a CT Abd/Pel was done that showed appendicolith within proximal third of appendix, mild dilation distally, questionable fat stranding. As a result, surgery was consulted. Pt underwent laparoscopic appendectomy with no complications. He was observed overnight. Pt tolerated clear liquid diet, minimal abdominal pain, and had flatus. Pt was discharged to home with instructions to follow up with his PCP and surgeon outpatient. Date of Admission:05/05/18 Date of Discharge: 05/07/18 Minutes to complete discharge: 35 Discharge Summary Reason For Visit: APPENDICITIS Condition: Improved - Instructions Diet, Activity, Other Instructions: Dr. Robertson Discharge Instructions Post Operative Instructions Physical activity Resume your normal everyday activity as tolerated no heavy lifting or exercise until seen by your surgeon. You may walk unlimited amounts of and climb stairs. You may resume driving the car when you feel safe and comfortable behind the wheel. Wound care If you have a bandage, leave it on, and keep dry for 48 - 72 hours. After that time discard the outer bandage. If there are tapes on the skin under the outer bandage, leave them in place. They will peel off in the next 7 to 10 days. Do Not peel them off. You may shower 2 days after surgery. If there are tapes present on the skin, they can get wet. Diet There are no dietary restrictions. Eat healthy, high-fiber foods. Drink 6 to 8 glasses of liquid each day. This will assist in keeping your bowels are regular. Pain management You may take Tylenol or acetaminophen or Ibuprofen (for example, Motrin, Advil etc.) Any pain prescription medication ordered should be taken as prescribed for moderate to severe pain. Please use the incentive spirometry for at least 10 times every hour for [address] Robertson for any of the following: Severe pain not relieved by medication Fever of 101 or higher Excessive bleeding or drainage on dressing Inability to urinate Call the office at [phone] for a post operative appointment in 7 - 10 days. Please follow up with your primary care doctor within 1 week. Referrals: Vivek Robertson MD [Staff Physician] - 1 Week Disposition: HOME - Home Medications Comprehensive Discharge Medication List: Ambulatory Orders NK [No Known Home Medication] 05/05/18 This patient is new to me today: No Emergency Visit: Yes ED Registration Date: 05/05/18 Care time: The patient presented to the Emergency Department on the above date and was hospitalized for further evaluation of their emergent condition. Critical Care patient: No - Discharge Referral Referred to [facility] No
[2018-05-07] MEDS ORDERED: ENOXAPARIN NA (PORCINE) 40 MG/0.4 ML DISP.SYRIN SQ SCH (10:00)
[2018-05-07 10:53] VITALS: BP 126/69; PULSE 62; TEMP 98.7
--- NOTE | 2018-05-07 14:26 | PN ---
Teaching Attending Note Name of Resident: Jade Coombs ATTENDING PHYSICIAN STATEMENT I saw and evaluated the patient. I reviewed the resident's note and discussed the case with the resident. I agree with the resident's findings and plan as documented. SUBJECTIVE: Patient is comfotable, no fever or chills, no shortness of breath. OBJECTIVE: Vital Signs - 24 hr 05/06/18 05/06/18 05/06/18 17:49 21:00 22:18 Temperature 97.4 F L 98 F Pulse Rate 63 65 Respiratory 20 20 20 Rate Blood Pressure 112/55 123/63 O2 Sat by Pulse 99 Oximetry (%) 05/07/18 05/07/18 06:00 08:00 Temperature 97.9 F 98.7 F Pulse Rate 53 L 62 Respiratory 20 20 Rate Blood Pressure 117/57 126/69 O2 Sat by Pulse 97 Oximetry (%) CBCD WBC 11.3 K/mm3 (4.0-10.0) H 05/07/18 06:30 RBC 3.81 M/mm3 (4.00-5.60) L 05/07/18 06:30 Hgb 11.7 GM/dL (11.7-16.9) 05/07/18 06:30 Hct 33.3 % (35.4-49) L 05/07/18 06:30 MCV 87.5 fl (80-96) 05/07/18 06:30 MCHC 34.9 g/dl (32.0-35.9) 05/07/18 06:30 RDW 13.1 % (11.9-15.9) 05/07/18 06:30 Plt Count 242 K/MM3 (134-434) 05/07/18 06:30 MPV 7.3 fl (7.5-11.1) L 05/07/18 06:30 CMP Sodium 142 mmol/L (136-145) 05/07/18 06:30 Potassium 3.9 mmol/L (3.5-5.1) 05/07/18 06:30 Chloride 107 mmol/L (98-107) 05/07/18 06:30 Carbon Dioxide 27 mmol/L (21-32) 05/07/18 06:30 Anion Gap 8 (8-16) 05/07/18 06:30 BUN 9 mg/dL (7-18) 05/07/18 06:30 Creatinine 1.1 mg/dL (0.7-1.3) 05/07/18 06:30 Creat Clearance w eGFR > 60 (>60) 05/07/18 06:30 Random Glucose 104 mg/dL (74-106) D 05/07/18 06:30 Calcium 8.5 mg/dL (8.5-10.1) 05/07/18 06:30 Total Bilirubin 0.5 mg/dL (0.2-1.0) 05/07/18 06:30 AST 19 U/L (15-37) 05/07/18 06:30 ALT 41 U/L (12-78) 05/07/18 06:30 Alkaline Phosphatase 59 U/L (45-117) 05/07/18 06:30 Total Protein 6.8 g/dl (6.4-8.2) 05/07/18 06:30 Albumin 3.5 g/dl (3.4-5.0) 05/07/18 06:30 Home Medications Medication Instructions Recorded NK [No Known Home Medication] 05/05/18 PE: per resident's note Abdomen: s/p lap chol., incision sites are clean CT Abd/Pel: appendicolith within proximal third of appendix, mild dilation distally, questionable fat stranding. ASSESSMENT/PLAN: 43 y/o male with no significant PMH presents with complaint of perumbilical abdominal pain, s/p appendectomy today. #POD #1 Acute appendicitis; s/p lap appendectomy with findings of acute suppurative appendicitis; On pain meds, IVF,Monitor Creatinine, given a dose of IV antibiotic, wll dicharge the patient home since he is able to tolerate diet , passing gas. Will dischrged the patient home.
--- NOTE | 2018-05-07 17:25 | PATH ---
Surgical Pathology Report Patient Name: SONAL PARSONS Med. Rec. #: [id number] /Age/Gender: 1975 (Age: 43) / M Account: [id number] Location: [address] [place] [address]/[facility] Taken: 05/06/2018 Received: 05/06/2018 Reported: 05/07/2018 Physicians: MD Airam Hayes M.D. Specimen(s) Received APPENDIX Clinical History Acute appendicitis Final Diagnosis APPENDIX, LAPAROSCOPIC APPENDECTOMY: ACUTE APPENDICITIS WITH PERIAPPENDICITIS. Electronically Signed Sandy Villalba M.D. Gross Description Received in formalin, labeled "appendix," is a 6 cm. in length vermiform appendix with a stapled margin of resection and moderate attached fat. The serosa is santos-pink and smooth. Sectioning reveals an unremarkable lumen. The wall of the appendix averages 0.1 cm. in thickness. Grease And Tallow Pumper sections are submitted in one cassette. /05/06/2018 saudi/05/06/2018
--- NOTE | 2018-05-08 09:33 | OP ---
DATE OF OPERATION: 05/06/2018 PREOPERATIVE DIAGNOSIS: Acute appendicitis. POSTOPERATIVE DIAGNOSIS: Acute appendicitis. PROCEDURE: Laparoscopic appendectomy. SURGEON: Vivek Robertson MD SPECIAL EVENTS DRIVER: Toy Donohue PA-C ANESTHESIA: General. OPERATIVE FINDINGS: Acute suppurative appendicitis. The rest of the findings were unremarkable. DESCRIPTION OF PROCEDURE: The patient was placed on the operating table in the supine position, and after the induction of general anesthesia, the patients abdomen was prepped with ChloraPrep and draped in sterile fashion. Pneumoperitoneum established above the umbilicus using a Veress needle after a time-out was observed and achieving an intraabdominal pressure of 50 mmHg. A 5-mm port was placed at the umbilicus, and laparoscopy carried out, and the previously noted findings were observed. An additional 12-mm suprapubic port and left lower quadrant 5-mm port were placed, as well. The appendix was identified using blunt dissection and grasped, and then, the mesoappendix identified and serially divided using the LigaSure. Additional blunt dissection was carried out to identify the base of the appendix at the convergence of the 3 tenia of the right colon. At this time, a 60-mm purple-load Endo DUKE was fired across the base of the appendix. The appendix was then placed in an EndoCatch and brought out through the suprapubic port. Pneumoperitoneum was reestablished and copious irrigation carried out with normal saline. The staple line was noted to be hemostatic. Pneumoperitoneum was then released after all port sites were removed under laparoscopic vision without evidence of bleeding from the port sites. All port sites were infiltrated with 0.5% Marcaine and the defect in the suprapubic fascia was closed with a single 0 Vicryl figure-of-8 suture. The skin incisions were closed with 4-0 Vicryl in a subcuticular fashion followed by Steri-Strips and Band-Aid dressings. The procedure was terminated at this point, and the patient aroused from general anesthesia and transferred to the post-anesthesia care unit in stable condition, awake and alert. ESTIMATED BLOOD LOSS: Approximately 15 mL. REPLACEMENTS: Crystalloid. DRAINS: None. SPECIMENS: Appendix to Pathology. I, Vivek Robertson, was physically present in the operating room from the time the patient was placed on the operating table until he was transferred to the post-anesthesia care unit in accompaniment. MD SEB Manzo/[id number] MTDD
== END 2018-05-07 12:01 | disposition home or self-care (01) | DRG 225 ==
LOC: JER 16:53 → JERBED 22:53 → J6S 05-06 09:20
PROVIDERS: ADMIT Internal Medicine; ATTEND Internal Medicine
PROC: 0DTJ4ZZ Resection of Appendix, Percutaneous Endoscopic Approach (ICD-10-PCS; principal; 2018-05-06 10:00)
DX: K36 Other appendicitis (principal); D72.829 Elevated white blood cell count, unspecified; R63.0 Anorexia; Z68.31 Body mass index [BMI] 31.0-31.9, adult
CPT/HCPCS: 36415; 74177-TC; 80048; 80053; 81003; 81015; 83036; 83690; 85025; 85610; 86850; 86900; 86901; 88304-TC; 93005; 93010; 94760; 99285-25; J0131; J7030